=== PATIENT | female | born 1940 | race Two or more races ===

== ENCOUNTER 2016-10-17 14:36 | Emergency (ER) | payer MEDICAID, MEDICARE ==
[~2016-10-17] VITALS: Ht 160 cm; Wt 77.0 kg
[2016-10-17 18:18] VITALS: BP 111/78
== END 2016-10-17 18:26 | disposition home or self-care (01) ==
LOC: ER 15:23
DX: S76.019A Strain of muscle, fascia and tendon of unspecified hip, initial encounter (principal); S70.00XA Contusion of unspecified hip, initial encounter; M16.11 Unilateral primary osteoarthritis, right hip; W01.0XXA Fall on same level from slipping, tripping and stumbling without subsequent striking against object, initial encounter; Y93.89 Activity, other specified; Y92.89 Other specified places as the place of occurrence of the external cause; Y99.8 Other external cause status; Z88.6 Allergy status to analgesic agent
CPT/HCPCS: 72170; 99283